=== PATIENT | female | born 1955 | race African-American/Black ===

== ENCOUNTER 2017-10-26 14:59 | Inpatient (IN) | payer OTHER ==
[~2017-10-26] VITALS: Ht 172.7 cm; Wt 83.9 kg
[2017-10-26 14:59] VITALS: BP_SYST 155
[2017-10-26] MEDS ORDERED: ENALAPRILAT DIHYDRATE 1.25 MG/ML VIAL IVP ONE (15:30)
[2017-10-26] MEDS ORDERED: NORMAL SALINE 5 ML DISP.SYRIN IVF ONE (15:30)
[2017-10-26 15:52] LABS: BASOPHILS # (AUTO) 0.1 K/uL (0.0-0.2); BASOPHILS % (AUTO) 0.6 % (0.0-2.0); EOSINOPHILS # (AUTO) 0.1 K/uL (0.0-0.4); EOSINOPHILS % (AUTO) 1.4 % (0.0-4.0); HEMATOCRIT 38.2 % (36-48); HEMOGLOBIN 12.6 g/dL (12.0-16.0); LYMPHOCYTES # (AUTO) 2.9 K/uL (1.0-5.5); LYMPHOCYTES % (AUTO) 29.3 % (20.5-51.5); MEAN CORPUSCULAR HEMOGLOBIN 27 pg (27-31); MEAN CORPUSCULAR HGB CONC 33 % (32-36); MEAN CORPUSCULAR VOLUME 83 fL (79.0-98.0); MONOCYTES # (AUTO) 0.8 K/uL (0.0-1.0); MONOCYTES % (AUTO) 7.8 % (1.7-9.3); NEUTROPHILS # (AUTO) 5.9 K/uL (1.8-7.7); NEUTROPHILS % (AUTO) 60.9 % (40.0-70.0); PLATELET COUNT (AUTO) 265 K/uL (130-430); RED BLOOD CELL COUNT(AUTO) 4.62 MIL/uL (4.2-6.2); RED CELL DISTRIBUTION WIDTH 13.9 % (9.0-15.0); WHITE BLOOD COUNT (AUTO) 9.8 K/uL (4.8-10.8)
[2017-10-26 16:00] LABS: ANION GAP 8 (5-15); CALCIUM 9.1 mg/dL (8.4-11.0); CHLORIDE 103 mmol/L (98-107); CREATININE 0.96 mg/dL (0.55-1.30); GLUCOSE 115 mg/dL (70-99); POTASSIUM 3.4 mmol/L (3.5-5.1); SODIUM SERUM 142 mmol/L (136-145); UREA NITROGEN, BLOOD 24 mg/dL (8-21)
[2017-10-26 16:01] LABS: GFR AFRICAN AMERICAN 75 mL/min (>90)
[2017-10-26 16:14] LABS: ALANINE AMINOTRANSFERASE 29 U/L (12-78); ALBUMIN 3.6 g/dL (3.4-4.8); ASPARTATE AMINOTRANSFERASE 24 U/L (10-37); THYROID STIMULATING HORMONE 1.45 uIu/mL (0.36-3.74); TOTAL BILIRUBIN 0.3 mg/dL (0.0-1.0)
[2017-10-26] MEDS ORDERED: ATEN-41 PO (17:39)
[2017-10-26] MEDS ORDERED: ASA81 PO (17:39)
[2017-10-26] MEDS ORDERED: HYDR12.55 PO (17:39)
[2017-10-26 17:58] VITALS: BP_SYST 153
[2017-10-26 19:16] LABS: BILIRUBIN,URINE NEGATIVE (NEGATIVE); CLARITY/URINE CLEAR (CLEAR); COLOR,URINE YELLOW (YELLOW); GLUCOSE,URINE NEGATIVE (NEGATIVE); KETONES,URINE NEGATIVE (NEGATIVE); LEUKOCYTE ESTERASE ,URINE NEGATIVE (NEGATIVE); NITRITE, URINE NEGATIVE (NEGATIVE); PROTEIN URINE NEGATIVE (NEGATIVE); UROBILINOGEN,URINE 0.2 (0.2-1.0)
[2017-10-26 19:21] LABS: BLOOD, URINE TRACE (NEGATIVE)
[2017-10-26 19:30] LABS: BARBITURATE, URINE NEGATIVE (NEG <=200); BENZODIAZEPINE, URINE NEGATIVE (NEG <=150); CANNABINOID, URINE NEGATIVE (NEG <=50); COCAINE, URINE NEGATIVE (NEG <=150); METHAMPHETAMINES SCREEN,URINE NEGATIVE (NEG <=500); OPIATE, URINE NEGATIVE (NEG <=100); PHENCYCLIDINE SCREEN,URINE NEGATIVE (NEG <=25); UR TRICYCLIC ANTIDEPRESSANTS NEGATIVE (NEG <=300); URINE AMPHETAMINE NEGATIVE (NEG <=500); URINE METHADONE NEGATIVE (NEG <=200); URINE OXYCODONE SCREEN NEGATIVE (NEG <=100); URINE PROPOXYPHENE SCREEN NEGATIVE (NEG <=300)
[2017-10-26 19:40] LABS: BACTERIA,URINE RARE /HPF (None Seen); WBC,URINE 0-3 /HPF (0-3)
[2017-10-26] MEDS ORDERED: cloNIDine HCL 0.1 MG TABLET PO PRN (19:45)
[2017-10-26] MEDS ORDERED: ACETAMINOPHEN 325 MG TABLET PO PRN (19:45)
[2017-10-26 19:55] VITALS: BP_SYST 146
[2017-10-26] MEDS ORDERED: POTASSIUM CHLORIDE 20 MEQ TAB.PRT.SR PO ONE (20:00)
[2017-10-26] MEDS ORDERED: ONDANSETRON HCL 4 MG/2 ML VIAL IVP PRN (20:00)
[2017-10-26] MEDS: ACETAMINOPHEN/CODEINE 300 MG-30 MG TABLET PO PRN ×2 (20:50)
[2017-10-27 00:13] VITALS: BP_SYST 134
[2017-10-27] MEDS: ACETAMINOPHEN/CODEINE 300 MG-30 MG TABLET PO PRN ×3 (03:56→18:44)
[2017-10-27 06:55] LABS: BASOPHILS % (AUTO) 0.4 % (0.0-2.0); EOSINOPHILS # (AUTO) 0.2 K/uL (0.0-0.4); EOSINOPHILS % (AUTO) 2.2 % (0.0-4.0); HEMATOCRIT 39.7 % (36-48); HEMOGLOBIN 12.7 g/dL (12.0-16.0); LYMPHOCYTES % (AUTO) 37.7 % (20.5-51.5); MEAN CORPUSCULAR HEMOGLOBIN 27 pg (27-31); MEAN CORPUSCULAR HGB CONC 32 % (32-36); MEAN CORPUSCULAR VOLUME 84 fL (79.0-98.0); MONOCYTES # (AUTO) 0.8 K/uL (0.0-1.0); MONOCYTES % (AUTO) 9.6 % (1.7-9.3); NEUTROPHILS # (AUTO) 3.9 K/uL (1.8-7.7); NEUTROPHILS % (AUTO) 50.1 % (40.0-70.0); PLATELET COUNT (AUTO) 242 K/uL (130-430); RED BLOOD CELL COUNT(AUTO) 4.73 MIL/uL (4.2-6.2); RED CELL DISTRIBUTION WIDTH 14.1 % (9.0-15.0); WHITE BLOOD COUNT (AUTO) 7.9 K/uL (4.8-10.8)
[2017-10-27 07:04] LABS: POTASSIUM 4.4 mmol/L (3.5-5.1)
[2017-10-27 07:05] LABS: ALBUMIN 3.6 g/dL (3.4-4.8); CALCIUM 9.4 mg/dL (8.4-11.0); CREATININE 0.93 mg/dL (0.55-1.30); FREE T4 (FREE THYROXINE) 0.8 ng/dL (0.6-1.6); THYROID STIMULATING HORMONE 4.47 uIu/mL (0.34-4.82); TOTAL BILIRUBIN 0.6 mg/dL (0.0-1.0)
[2017-10-27 08:00] VITALS: BP_SYST 125; BP_SYST 130
[2017-10-27] MEDS: ASPIRIN 81 MG TAB.CHEW PO SCH (09:10)
[2017-10-27] MEDS: ATENOLOL 25 MG TABLET(TENORMIN) PO SCH (09:10)
[2017-10-27] MEDS: HYDROCHLOROTHIAZIDE 25 MG TABLET (HCTZ) PO SCH (09:10)
[2017-10-27 11:54] VITALS: BP_SYST 122
[2017-10-27 16:06] VITALS: BP_SYST 136
[2017-10-27 20:00] VITALS: BP_SYST 118
[2017-10-27 23:44] VITALS: BP_SYST 123
[2017-10-28] MEDS: ACETAMINOPHEN/CODEINE 300 MG-30 MG TABLET PO PRN ×4 (06:43→23:12)
[2017-10-28 06:44] LABS: CHOLESTEROL 240 mg/dL (<200); HDL CHOLESTEROL 75 mg/dL (>55); LDL CHOLESTEROL 135 mg/dL (<100); TRIGLYCERIDES 135 mg/dL (30-150)
[2017-10-28 08:00] VITALS: BP_SYST 131
[2017-10-28] MEDS: ASPIRIN 81 MG TAB.CHEW PO SCH (08:36)
[2017-10-28] MEDS: HYDROCHLOROTHIAZIDE 25 MG TABLET (HCTZ) PO SCH (08:36)
[2017-10-28] MEDS: ATENOLOL 25 MG TABLET(TENORMIN) PO SCH (08:37)
[2017-10-28] MEDS ORDERED: THIAMINE HCL 100 MG in NS 50 ML IV ONE (11:45)
[2017-10-28] MEDS ORDERED: LORazepam 2 MG/ML VIAL IVP PRN (11:45)
[2017-10-28 12:02] VITALS: BP_SYST 136
[2017-10-28 16:06] VITALS: BP_SYST 116
[2017-10-28 20:00] VITALS: BP_SYST 116
[2017-10-29 00:09] VITALS: BP_SYST 123
[2017-10-29 08:02] VITALS: BP_SYST 133
[2017-10-29] MEDS: HYDROCHLOROTHIAZIDE 25 MG TABLET (HCTZ) PO SCH (08:17)
[2017-10-29] MEDS: THIAMINE HCL 100 MG TABLET PO SCH (08:17)
[2017-10-29] MEDS: ASPIRIN 81 MG TAB.CHEW PO SCH (08:17)
[2017-10-29] MEDS: ATENOLOL 25 MG TABLET(TENORMIN) PO SCH (08:18)
[2017-10-29] MEDS: FOLIC ACID 1 MG TABLET PO SCH (08:19)
[2017-10-29] MEDS: ACETAMINOPHEN/CODEINE 300 MG-30 MG TABLET PO PRN ×3 (08:19→21:29)
[2017-10-29 11:59] VITALS: BP_SYST 132
[2017-10-29 16:07] VITALS: BP_SYST 124
[2017-10-29] MEDS ORDERED: LORazepam 2 MG/ML VIAL IVP PRN (18:45)
[2017-10-29] MEDS ORDERED: levETIRAcetam 500 MG TABLET PO PRN (18:45)
[2017-10-29 20:00] VITALS: BP_SYST 141
[2017-10-30] VITALS: BP_SYST 155
[2017-10-30] MEDS: ACETAMINOPHEN/CODEINE 300 MG-30 MG TABLET PO PRN (08:07)
[2017-10-30 08:25] VITALS: BP_SYST 139
[2017-10-30] MEDS: FOLIC ACID 1 MG TABLET PO SCH (08:36)
[2017-10-30] MEDS: ASPIRIN 81 MG TAB.CHEW PO SCH (08:36)
[2017-10-30] MEDS: HYDROCHLOROTHIAZIDE 25 MG TABLET (HCTZ) PO SCH (08:38)
[2017-10-30] MEDS: ATENOLOL 25 MG TABLET(TENORMIN) PO SCH (08:40)
[2017-10-30] MEDS: THIAMINE HCL 100 MG TABLET PO SCH (08:40)
[2017-10-30] MEDS ORDERED: levETIRAcetam 500 MG TABLET PO PRN (09:00)
[2017-10-30] MEDS ORDERED: GADOPENTETATE DIMEGLUMINE 15 ML VIAL IV ONE (09:05)
[2017-10-30 11:26] VITALS: BP_SYST 113
[2017-10-30 12:24] VITALS: BP_SYST 123
== END 2017-10-30 13:30 | disposition home or self-care (01) | DRG 312 ==
LOC: SED 14:59 → STU 17:32
PROVIDERS: ADMIT Internal Medicine; ATTEND Internal Medicine
DX: R55 Syncope and collapse (principal); K76.0 Fatty (change of) liver, not elsewhere classified; E87.6 Hypokalemia; M47.9 Spondylosis, unspecified; F10.10 Alcohol abuse, uncomplicated; I10 Essential (primary) hypertension; Z79.82 Long term (current) use of aspirin; V89.2XXA Person injured in unspecified motor-vehicle accident, traffic, initial encounter; Y92.410 Unspecified street and highway as the place of occurrence of the external cause; Z79.899 Other long term (current) drug therapy; Z82.49 Family history of ischemic heart disease and other diseases of the circulatory system; Z87.891 Personal history of nicotine dependence
CPT/HCPCS: 36415; 70450-TC; 70553; 71250-TC; 72125-TC; 76700-TC; 80053; 80061; 80307; 81000-TC; 82140-TC; 83735-TC; 84439; 84443-TC; 84484; 85025; 93005; 93306; 93880; 95816; 96374; 99285; A9579; J3411

== ENCOUNTER 2022-02-12 12:46 | Emergency (ER) | payer MEDICARE, MEDICAID ==
[~2022-02-12] VITALS: Ht 172.7 cm; Wt 81.6 kg
[~2022-02-12 12:46] MED LIST: ASA81 PO; ATEN-41 PO; HYDR12.55 PO
[2022-02-12 12:54] VITALS: BP_SYST 143
--- NOTE | 2022-02-12 13:00 | NUR ---
Pt brought by self, A&Ox4, ambulatory, pt presents to ER with pain/ burning with urination, afebrile, VSS, will cont to monitor.
[2022-02-12 13:38] LABS: BILIRUBIN,URINE NEGATIVE (NEGATIVE); BLOOD, URINE 3+ (NEGATIVE); CLARITY/URINE CLEAR (CLEAR); COLOR,URINE YELLOW (YELLOW); GLUCOSE,URINE NEGATIVE (NEGATIVE); KETONES,URINE NEGATIVE (NEGATIVE); LEUKOCYTE ESTERASE ,URINE 2+ (NEGATIVE); NITRITE, URINE NEGATIVE (NEGATIVE); PH,URINE 6.5 (5.0-8.0); PROTEIN URINE NEGATIVE (NEGATIVE); UROBILINOGEN,URINE 0.2 (0.2-1.0)
[2022-02-12 15:14] LABS: BACTERIA,URINE FEW /HPF (None Seen); MUCUS,URINE 1+ /LPF (None Seen)
== END 2022-02-12 16:00 | disposition left against medical advice (07) ==
LOC: SED 12:46
DX: R30.9 Painful micturition, unspecified (principal); E78.5 Hyperlipidemia, unspecified; I10 Essential (primary) hypertension; Z53.21 Procedure and treatment not carried out due to patient leaving prior to being seen by health care provider
CPT/HCPCS: 81000